=== PATIENT | male | born 1995 | race African-American/Black ===

== ENCOUNTER 2016-12-14 10:51 | Emergency (ER) | payer MEDICAID ==
[~2016-12-14] VITALS: Ht 165.1 cm; Wt 71.0 kg
[2016-12-14] MEDS ORDERED: PENICILLIN G BENZATHINE 1,200,000 UNITS/2ML SYR IM ONE (11:45)
[2016-12-14] MEDS ORDERED: PREDNISONE 20MG TABLET PO ONE (11:45)
[2016-12-14] MEDS ORDERED: KETOROLAC 60MG/2ML VIAL IM ONE (11:45)
[2016-12-14 12:05] VITALS: BP 118/78
== END 2016-12-14 14:53 | disposition home or self-care (01) ==
LOC: ER 14:45
DX: J02.0 Streptococcal pharyngitis (principal)
CPT/HCPCS: 96372; 99284; J0561; J1885; J7512; Z7610